=== PATIENT | male | born 1960 | race Caucasian/White ===

== ENCOUNTER 2018-08-20 23:33 | Inpatient (IN) | payer SELFPAY ==
[~2018-08-20] VITALS: Ht 162.6 cm; Wt 83.9 kg
[2018-08-21] MEDS ORDERED: NITROGLYCERIN OINT 1GM/INCH UDPKT TD ONE (00:15)
[2018-08-21 00:42] LABS: CHLORIDE 106 mEq/L (98-107)
[2018-08-21 00:44] LABS: BASOPHILS % 0.5 % (0.0-2.0); HEMATOCRIT. 31.8 % (42.0-52.0); HEMOGLOBIN. 10.5 g/dL (14.0-18.0); LYMPHOCYTES % 33.7 % (20.0-50.0); MEAN CORPUSCULAR HEMOGLOBIN 26.4 pg (28.0-32.0); MEAN CORPUSCULAR VOLUME 80.2 fL (80.0-94.0); MEAN PLATELET VOLUME 8.2 fl (7.4-10.4); MONOCYTES % 7.5 % (2.0-8.0); NEUTROPHILS % 56.3 % (40.0-76.0); PLATELET 154 x1000/uL (130-400); RED BLOOD CELL COUNT 3.96 mill/uL (4.7-6.1); RED CELL DISTRIBUTION WIDTH 15.7 % (11.6-14.6)
[2018-08-21 06:54] VITALS: BP 91/55
[2018-08-21] MEDS ORDERED: LISI10TA5 PO (07:59)
[2018-08-21] MEDS ORDERED: ASPI-1158 PO (07:59)
[2018-08-21] MEDS ORDERED: TAMS-11 MT (07:59)
[2018-08-21] MEDS ORDERED: FURO-151 PO (07:59)
[2018-08-21] MEDS ORDERED: CARV25TA47 MT (07:59)
[2018-08-21] MEDS ORDERED: OMEP20CA10 MT (07:59)
[2018-08-21] MEDS ORDERED: METF-416 MT (07:59)
[2018-08-21] MEDS ORDERED: ATOR40TA70 MT (07:59)
[2018-08-21 08:00] VITALS: BP 99/59
[2018-08-21] MEDS ORDERED: ACETAMINOPHEN 325MG TABLET PO PRN (08:15)
[2018-08-21] MEDS ORDERED: ONDANSETRON HCL 4MG/2ML INJ IV PRN (08:15)
[2018-08-21] MEDS: CARVEDILOL 6.25 MG TABLET PO SCH ×2 (10:30→20:59)
[2018-08-21 11:09] VITALS: BP 99/59
[2018-08-21 12:00] VITALS: BP 95/59
[2018-08-21] MEDS ORDERED: DEXTROSE 50% WATER 50ML SYRINGE IV PRN (12:15)
[2018-08-21] MEDS: ENOXAPARIN 40MG/0.4ML SYR SUBCUT SCH (12:35)
[2018-08-21] MEDS: ASPIRIN 81MG TABLET PO SCH (12:36)
[2018-08-21] MEDS: TAMSULOSIN HCL 0.4MG SR CAPSULE PO SCH (12:36)
[2018-08-21] MEDS: BLOOD SUGAR DIAGNOSTIC STRIP TEST SCH ×3 (12:40→21:00)
[2018-08-21] MEDS: INSULIN LISPRO 100 UNITS/ML SUBCUT SCH ×3 (13:10→21:00)
[2018-08-21] MEDS: FUROSEMIDE 40MG/4ML VIAL IVP SCH ×2 (15:22→17:52)
[2018-08-21] MEDS: SPIRONOLACTONE 50MG TABLET PO SCH (15:22)
[2018-08-21 16:00] VITALS: BP 100/64
[2018-08-21 19:26] LABS: CLARITY URINE CLEAR (CLEAR); COLOR URINE YELLOW (YELLOW); KETONES URINE NEGATIVE (NEGATIVE); LEUKOCYTE ESTERASE URINE NEGATIVE (NEGATIVE); NITRITE URINE NEGATIVE (NEGATIVE); OCCULT BLOOD URINE NEGATIVE (NEGATIVE); PROTEIN URINE NEGATIVE (NEGATIVE); SPECIFIC GRAVITY URINE 1.005 (1.005-1.030); UROBILINOGEN URINE 0.2 E.U./dL (0.2-1.0)
[2018-08-21 20:00] VITALS: BP 94/59
[2018-08-21 20:02] LABS: *AMPHETAMINES SCREEN URINE NEGATIVE (NEGATIVE); *BARBITURATES SCREEN URINE NEGATIVE (NEGATIVE); *BENZODIAZEPINES SCREEN URINE NEGATIVE (NEGATIVE); *COCAINE SCREEN URINE NEGATIVE (NEGATIVE)
[2018-08-21 20:03] LABS: CANNABINOID URINE SCREEN NEGATIVE (NEGATIVE); METHADONE URINE SCREEN NEGATIVE (NEGATIVE); OPIATES URINE SCREEN NEGATIVE (NEGATIVE); PHENCYCLIDINE URINE SCREEN NEGATIVE (NEGATIVE)
[2018-08-22 00:20] VITALS: BP 101/66
[2018-08-22 04:00] VITALS: BP 105/66
[2018-08-22 07:19] LABS: BASOPHILS % 0.6 % (0.0-2.0); LYMPHOCYTES % 33.9 % (20.0-50.0); MEAN CORPUSCULAR HEMOGLOBIN 26.6 pg (28.0-32.0); MEAN CORPUSCULAR VOLUME 79.7 fL (80.0-94.0); MONOCYTES % 7.5 % (2.0-8.0); PLATELET 153 x1000/uL (130-400); RED BLOOD CELL COUNT 4.15 mill/uL (4.7-6.1); RED CELL DISTRIBUTION WIDTH 15.5 % (11.6-14.6)
[2018-08-22] MEDS: BLOOD SUGAR DIAGNOSTIC STRIP TEST SCH ×4 (07:30→20:51)
[2018-08-22] MEDS: INSULIN LISPRO 100 UNITS/ML SUBCUT SCH ×4 (07:31→21:02)
[2018-08-22 07:42] LABS: CHLORIDE 100 mEq/L (98-107)
[2018-08-22] MEDS: SPIRONOLACTONE 50MG TABLET PO SCH (08:03)
[2018-08-22] MEDS: ASPIRIN 81MG TABLET PO SCH (08:03)
[2018-08-22] MEDS: FUROSEMIDE 40MG/4ML VIAL IVP SCH (08:06)
[2018-08-22] MEDS: ENOXAPARIN 40MG/0.4ML SYR SUBCUT SCH (08:06)
[2018-08-22] MEDS: CARVEDILOL 6.25 MG TABLET PO SCH ×2 (09:00→20:57)
[2018-08-22] MEDS: TAMSULOSIN HCL 0.4MG SR CAPSULE PO SCH (09:00)
[2018-08-22] MEDS: LISINOPRIL 5MG TABLET PO SCH (10:15)
[2018-08-22 20:00] VITALS: BP 111/79
[2018-08-23] VITALS: BP 115/77
[2018-08-23 04:00] VITALS: BP 102/72
[2018-08-23] MEDS: BLOOD SUGAR DIAGNOSTIC STRIP TEST SCH ×2 (06:28→12:55)
[2018-08-23 06:46] LABS: BASOPHILS % 0.3 % (0.0-2.0); HEMATOCRIT. 34.9 % (42.0-52.0); HEMOGLOBIN. 11.4 g/dL (14.0-18.0); LYMPHOCYTES % 31.3 % (20.0-50.0); MEAN CORPUSCULAR HEMOGLOBIN 26.2 pg (28.0-32.0); MEAN CORPUSCULAR VOLUME 80.1 fL (80.0-94.0); MEAN PLATELET VOLUME 8.4 fl (7.4-10.4); MONOCYTES % 7.9 % (2.0-8.0); NEUTROPHILS % 58.5 % (40.0-76.0); PLATELET 159 x1000/uL (130-400); RED BLOOD CELL COUNT 4.36 mill/uL (4.7-6.1); RED CELL DISTRIBUTION WIDTH 15.6 % (11.6-14.6)
[2018-08-23 07:00] LABS: CHLORIDE 101 mEq/L (98-107)
[2018-08-23 08:00] VITALS: BP 104/64
[2018-08-23] MEDS: INSULIN LISPRO 100 UNITS/ML SUBCUT SCH ×2 (08:24→13:10)
[2018-08-23] MEDS: ASPIRIN 81MG TABLET PO SCH (08:25)
[2018-08-23] MEDS: SPIRONOLACTONE 50MG TABLET PO SCH (08:25)
[2018-08-23] MEDS: TAMSULOSIN HCL 0.4MG SR CAPSULE PO SCH (08:25)
[2018-08-23] MEDS: CARVEDILOL 6.25 MG TABLET PO SCH (09:00)
[2018-08-23] MEDS: LISINOPRIL 5MG TABLET PO SCH (09:00)
[2018-08-23] MEDS ORDERED: FUROSEMIDE 40MG/4ML VIAL IVP SCH (09:00)
[2018-08-23] MEDS ORDERED: ENOXAPARIN 30MG/0.3ML SYR SUBCUT SCH (09:00)
[2018-08-23 12:00] VITALS: BP 115/63
[2018-08-23 14:20] VITALS: BP 115/63
== END 2018-08-23 16:05 | disposition home or self-care (01) | DRG 194 ==
LOC: ER 23:33 → 7WST 08-21 02:52 → ENRESERV 08-21 05:16 → 8WST 08-22 17:29
PROVIDERS: ADMIT Internal Medicine; ATTEND Internal Medicine
PROC: 4B02XTZ Measurement of Cardiac Defibrillator, External Approach (ICD-10-PCS; principal; 2018-08-22)
DX: I11.0 Hypertensive heart disease with heart failure (principal); I95.9 Hypotension, unspecified; I27.20 Pulmonary hypertension, unspecified; I42.9 Cardiomyopathy, unspecified; D64.9 Anemia, unspecified; E11.9 Type 2 diabetes mellitus without complications; R07.89 Other chest pain; I25.10 Atherosclerotic heart disease of native coronary artery without angina pectoris; I50.23 Acute on chronic systolic (congestive) heart failure; I34.0 Nonrheumatic mitral (valve) insufficiency; N40.0 Benign prostatic hyperplasia without lower urinary tract symptoms; E66.9 Obesity, unspecified; I25.2 Old myocardial infarction; Z95.810 Presence of automatic (implantable) cardiac defibrillator; Z71.3 Dietary counseling and surveillance; Z79.84 Long term (current) use of oral hypoglycemic drugs; Z68.31 Body mass index [BMI] 31.0-31.9, adult
CPT/HCPCS: 36415; 71045; 80048; 80061; 80305; 82962; 83036; 83880; 84443; 84484; 93005; 93306; 99285; J1650; J1815; J1940

== ENCOUNTER 2020-05-13 08:57 | Emergency (ER) | payer MEDICAID ==
[~2020-05-13] VITALS: Ht 162.6 cm; Wt 75.0 kg
[~2020-05-13 08:57] MED LIST: ASPI-1406 PO; ATOR40TA70 MT; CARV25TA47 MT; FURO-151 PO; LISI10TA5 PO; METF-416 MT; OMEP20CA14 MT; TAMS-11 MT
[2020-05-13] MEDS ORDERED: IBUPROFEN 600MG TABLET PO STA (09:29)
[2020-05-13 11:22] VITALS: BP 128/70
== END 2020-05-13 11:21 | disposition home or self-care (01) ==
LOC: ER 09:09
DX: M25.561 Pain in right knee (principal); E11.9 Type 2 diabetes mellitus without complications; Z79.899 Other long term (current) drug therapy
CPT/HCPCS: 73562; 99283